=== PATIENT | female | born 1950 | race Caucasian/White ===

== ENCOUNTER → 2016-03-15 | Outpatient (CLI) | payer MEDICARE ==
[2016-03-15 12:41] LABS: ALT 46 U/L (9-52); AST 51 U/L (14-36); Alkaline Phosphatase 216 U/L (38-126); Anion Gap 11 mmol/L; Blood Urea Nitrogen 22 mg/dL (7-17); Calcium 10.6 mg/dL (8.4-10.2); Carbon Dioxide 30 mmol/L (22-30); Chloride 100 mmol/L (98-107); Glucose 89 mg/dL (74-99); Non-African American GFR(MDRD) >60 (>60 ml/min/1.73 sqM); Potassium 4.5 mmol/L (3.5-5.1); Sodium 141 mmol/L (137-145); Total Bilirubin 0.6 mg/dL (0.2-1.3); Total Protein 7.6 g/dL (6.3-8.2)
== END | disposition home or self-care (01) ==
LOC: LABWHC1 12:13
PROVIDERS: ATTEND Internal Medicine Gastroenterology
DX: K74.3 Primary biliary cirrhosis (principal)
CPT/HCPCS: 36415; 80053

== ENCOUNTER → 2016-03-27 | Outpatient (CLI) | payer MEDICARE ==
--- NOTE | 2016-03-27 11:48 | XR ---
EXAMINATION TYPE: XR shoulder complete RT DATE OF EXAM: 03/27/2016 11:29 AM CLINICAL HISTORY: pain TECHNIQUE: Three views of the right shoulder are obtained. COMPARISON: None FINDINGS: There is no acute fracture/dislocation evident. The acromioclavicular and glenohumeral adonis int spaces appear narrowed.. The visualized ribs are intact and unremarkable. IMPRESSION: 1. There is no acute fracture or dislocation. ICD 10 NO FRACTURE, INITIAL EVALUATION
== END | disposition home or self-care (01) ==
LOC: RADXRMAIN 11:07
PROVIDERS: ATTEND Family Medicine
DX: M25.511 Pain in right shoulder (principal)

== ENCOUNTER → 2016-03-30 | Outpatient (CLI) | payer MEDICARE ==
--- NOTE | 2016-03-31 13:01 | MM ---
Reason for exam: screening (asymptomatic). Last mammogram was performed 1 year and 4 months ago. History: Patient is postmenopausal. Family history of premenopausal breast cancer in sister at age 55. Took estrogen for 1 month beginning at age 52. Physical Findings: A clinical breast exam by your physician is recommended on an annual basis and results should be correlated with mammographic findings. MG 3D Screening Mammo W/Cad Bilateral CC and MLO view(s) were taken. Prior study comparison: November 17, 2014, bilateral MG screening mammo w CAD. September 28, 2011, bilateral digital screening mammo w/CAD. There are scattered fibroglandular densities. There is no discrete abnormality. ASSESSMENT: Negative, BI-RAD 1 RECOMMENDATION: Routine screening mammogram of both breasts in 1 year.
== END | disposition home or self-care (01) ==
LOC: RADMAMWWP 13:25
PROVIDERS: ATTEND Family Medicine
DX: Z12.31 Encounter for screening mammogram for malignant neoplasm of breast (principal)
CPT/HCPCS: 77063; G0202

== ENCOUNTER 2016-05-01 12:04 | Emergency (ER) | payer MEDICARE ==
[2016-05-01 12:14] VITALS: RESP 16; TEMP 98.7
[2016-05-01] MEDS ORDERED: IBUPROFEN 800 MG TAB PO STA (12:54)
--- NOTE | 2016-05-01 12:59 | ED ---
Lower Extremity Injury HPI - General Chief Complaint: Extremity Injury, Lower Stated Complaint: Fall /Knee injury Time Seen by Provider: 05/01/16 12:40 Source: patient, EMS, RN notes reviewed Mode of arrival: EMS Limitations: physical limitation - History of Present Illness Initial Comments: This is a 66-year-old female with a prior history of left femur fracture and tibia fracture is ago who states she was at home cleaning when she slipped or tripped and landed on her left knee complains of lateral left knee pain also a slight hip pain. He denies any head neck or back pain or other extremity injury. The pain which could ambulate. At rest she has minimal pain but she tries ambulate she has a lot of pain. She states she has no residual hardware that she is aware of in her bones. MD Complaint: knee injury - Related Data Home Medications Medication Instructions Recorded Confirmed Aspirin 81 mg PO DAILY 05/18/15 05/01/16 Estrogens, Conjugated Cream 1 applicate VAGINAL DAILY 05/18/15 05/01/16 [Premarin Cream] Glucosamine HCl/Chondr Alvarez A Na 1 tab PO BID 05/18/15 05/01/16 [Osteo Bi-Flex Caplet] Multivit-Min/FA/Lycopene/Lut 1 tab PO DAILY 05/18/15 05/01/16 [Centrum Silver Tablet] Ursodiol 600 mg PO BID 05/18/15 05/01/16 traMADol HCl [Ultram] 50 mg PO Q6H PRN 05/18/15 05/01/16 Losartan [Cozaar] 50 mg PO DAILY 05/01/16 05/01/16 Naproxen 500 mg PO Q12HR PRN 05/01/16 05/01/16 Venlafaxine HCl ER [Effexor Xr] 75 mg PO DAILY 05/01/16 05/01/16 Previous Rx's Medication Instructions Recorded Hydrocodone/Acetaminophen [Llewellyn 1 each PO Q6HR PRN #20 tab 05/01/16 5-325] Ibuprofen [Motrin] 800 mg PO Q6HR PRN #20 tab 05/01/16 Allergies Allergy/AdvReac Type Severity Reaction Status Date / Time Iodinated Contrast Media - Allergy Rash/Hives Verified 05/01/16 12:34 Oral and iodine Allergy Rash/Hives Verified 05/01/16 12:34 latex Allergy Rash/Hives Verified 05/01/16 12:34 Review of Systems ROS Statement: Those systems with pertinent positive or pertinent negative responses have been documented in the HPI. ROS Other: All systems not noted in ROS Statement are negative. Musculoskeletal: Reports: as per HPI Past Medical History Past Medical History: Hypertension, Osteoarthritis (OA) Additional Past Medical History / Comment(s): CIRHOSIS, Polio History of Any Multi-Drug Resistant Organisms: None Reported Past Surgical History: Orthopedic Surgery Additional Past Surgical History / Comment(s): KNEE, BRAIN SX FOR ANEURISM Past Psychological History: No Psychological Hx Reported Smoking Status: Never smoker Past Alcohol Use History: Rare Past Drug Use History: None Reported General Exam - General Exam Comments Initial Comments: This is a well-developed well-nourished awake alert oriented 3 female Limitations: physical limitation General appearance: alert, in no apparent distress Head exam: Present: atraumatic, normocephalic, normal inspection Eye exam: Present: normal appearance Neck exam: Present: normal inspection. Absent: tenderness, meningismus, lymphadenopathy Extremities exam: Present: tenderness, normal capillary refill, other (Some slight tenderness palpation of left hip with no deformity. There is some edema to the left knee with tenderness palpation over the anterior lateral knee is difficult to try to stress knee due to pain. No obvious deformity however there is a slight bruise noted just proximal to the left knee anteriorly. Distally is no tenderness over the mid to distal tib-fib ankle or foot. Rest extremities are unremarkable) Neurological exam: Present: alert, oriented X3, CN II-XII intact Psychiatric exam: Present: normal affect, normal mood Skin exam: Present: warm, dry, intact. Absent: rash Course Vital Signs 05/01/16 05/01/16 12:05 15:44 Temperature 98.7 F Pulse Rate 55 L 68 Respiratory 16 16 Rate Blood Pressure 172/71 189/77 O2 Sat by Pulse 99 98 Oximetry - Reevaluation(s) Reevaluation #1: 05/01/16 15:55 I did discuss the findings with the orthopedic surgeon service on-call a full femur x-ray has been requested I did discuss the initial findings with the patient and family members. Medical Decision Making - Medical Decision Making I did discuss findings with the patient and her . Patient will be placed in a knee immobilizer and discharged she does have crutches at home she is a follow-up with [facility] tomorrow. - Radiology Data Radiology results: report reviewed (I did review all the imaging and the reports. There is a distal femur fracture is noted pelvis fracture seen. I did also see the new femur x-ray which shows no new fractures.), image reviewed Disposition Clinical Impression: Closed left femoral fracture, Fall Disposition: HOME SELF-CARE Condition: Good Instructions: Knee Pain (ED), Knee Sprain (ED), Leg Fracture (ED) Additional Instructions: Left knee immobilizer, ice elevation and pain medication as needed crutches which you have at home follow-up with orthopedics tomorrow Prescriptions: Hydrocodone/Acetaminophen [Llewellyn 5-325] 1 each PO Q6HR PRN #20 tab PRN Reason: Pain Ibuprofen [Motrin] 800 mg PO Q6HR PRN #20 tab PRN Reason: Pain Referrals: Bryan Wood DO [Primary Care Provider] - 1-2 days Erick Daniel MD [STAFF PHYSICIAN] - 1-2 days
--- NOTE | 2016-05-01 13:25 | XR ---
EXAMINATION TYPE: XR knee complete LT DATE OF EXAM: 05/01/2016 1:18 PM CLINICAL HISTORY: Fall injury with pain. TECHNIQUE: Three views of the left knee are obtained. COMPARISON: Left knee x-ray June 09, 2009 FINDINGS: Osseous structures are demineralized which is noted lower radiographic sensitivity. There i s is partial visualization of healed fractures distal femoral diaphysis and proximal tibial diaphysis . There is new linear lucency consistent with acute nondisplaced comminuted fracture with cortical step -off involving the medial distal femoral meta-epiphysis with intra-articular extension. There is soft tissue density consistent with associated moderate to large suprapatellar joint effusion with fat/fl uid level identified. Mild diffuse subcutaneous edema is present. IMPRESSION: Seen best on the frontal view there is acute comminuted nondisplaced intra-articular frac ture of the medial aspect distal femoral meta-epiphysis with associated joint effusion. (Initial encounter close type post traumatic fracture)
--- NOTE | 2016-05-01 13:27 | XR ---
EXAMINATION TYPE: XR pelvis AP view DATE OF EXAM: 05/01/2016 1:18 PM CLINICAL HISTORY: Pain after fall injury today. TECHNIQUE: A single AP view of the pelvis is obtained. COMPARISON: None. FINDINGS: Osseous structures are somewhat demineralized which is noted to lower radiographic sensitiv ity. In addition exam is suboptimal as there is rotation identified. There is step-off suspicious for fracture involving the left superior pelvic ramus near pubic symphysis. No suspicious widening of pu bic symphysis is seen. Sacroiliac joints are maintained. The overlying soft tissue appears unremarkab le. IMPRESSION: Suboptimal study, acute fracture involving left superior pelvic ramus is suspected. Consi austyn CT correlation to assess for additional pelvic fractures. (Initial encounter closed type post traumatic fracture)
--- NOTE | 2016-05-01 14:23 | CT ---
EXAMINATION TYPE: CT pelvis wo con DATE OF EXAM: 05/01/2016 2:14 PM COMPARISON: Same day pelvic x-ray HISTORY: Fall with pelvic pain, abnormal x-ray. CT DLP: 296.1 mGycm Automated exposure control for dose reduction was used. FINDINGS: Osseous structures are demineralized. There is no acute fracture or dislocation in the pelvis with pa rticular attention to left superior pelvic ramus, area of concern on plain film is felt product of ro tation and demineralization. Sacroiliac joints are symmetric and maintained. There is no suspicious w idening of pubic symphysis. There is mild to moderate symmetric axial joint space loss in both hips. Bladder is slightly prominent extending into the upper pelvis. There is no suspicious bowel dilatatio n. There is some prominence of fecal material in the visualized colon. Uterus is surgically absent or markedly atrophic in appearance. There is facet arthropathy in the lower lumbar spine. There is trudy ed asymmetric atrophy of the anterior thigh muscles bilaterally. Fat replaced atrophy of paraspinal m uscles is also noted. IMPRESSION: NO ACUTE FRACTURE OR DISLOCATION IN THE PELVIS IS SEEN. MODERATE DIFFUSE COLONIC FECAL STASIS IS NOTE D. NO BOWEL OBSTRUCTION IS SEEN. MARKED FAT REPLACED ATROPHY OF PARASPINAL AND THIGH MUSCLES IS NOTED .
--- NOTE | 2016-05-01 14:27 | CT ---
EXAMINATION TYPE: CT knee LT wo con DATE OF EXAM: 05/01/2016 2:17 PM COMPARISON: Same day left knee x-ray. HISTORY: Fall with Left knee pain, abnormal x-ray. CT DLP: 457.2 mGycm Automated exposure control for dose reduction was used. FINDINGS: Osseous structures are demineralized. Linear lucency consistent with acute nondisplaced oblique fract ure through distal femur beginning at medial metaphysis extending to the epiphysis near condylar notc h is confirmed. There is moderate to large suprapatellar joint effusion with fat fluid level confirme d system with acute intra-articular fracture. There is fusion of the fibular head and posterior tibial meta-epiphysis. No acute fracture at this le cherise is clearly seen. Old fracture at this level is seen better on plain film. Patella is intact. Old healed fracture distal femoral diaphysis is redemonstrated. There is marked fat replaced atrophy of the entire muscles surrounding the visualized distal femur an d proximal tibia/fibula. IMPRESSION: ACUTE OBLIQUE NONDISPLACED INTRA-ARTICULAR FRACTURE OF DISTAL FEMORAL META-EPIPHYSIS IS CONFIRMED. NO TE IS MADE OF ADVANCED FAT REPLACED ATROPHY OF SURROUNDING MUSCLES LEFT KNEE LEVEL.
[2016-05-01] MEDS ORDERED: ACETAMINOPHEN TAB 500 MG TAB PO STA (15:43)
[2016-05-01 15:45] VITALS: BP 189/77; PULSE 68
--- NOTE | 2016-05-01 16:04 | XR ---
EXAMINATION TYPE: XR femur LT DATE OF EXAM: 05/01/2016 4:00 PM CLINICAL HISTORY: Distal left femur and knee pain since fall injury. TECHNIQUE: Two views of the left femur are obtained. COMPARISON: Same day left knee x-ray and pelvic x-ray/CT. FINDINGS: There is no additional acute fracture or dislocation seen in the proximal to mid left femu r. Old healed fracture distal diaphysis level is noted. Acute nondisplaced fracture distal tibial met a-epiphysis is redemonstrated. Osseous structures are demineralized. The left hip joint shows mild adonis int space loss. The overlying soft tissue appears unremarkable. IMPRESSION: There is no additional acute fracture or dislocation in the proximal to mid left femur.
== END 2016-05-01 16:55 | disposition home or self-care (01) ==
LOC: EC 12:04
DX: S83.92XA Sprain of unspecified site of left knee, initial encounter (principal); I10 Essential (primary) hypertension; M19.90 Unspecified osteoarthritis, unspecified site; Z79.82 Long term (current) use of aspirin; Z79.899 Other long term (current) drug therapy; Z91.041 Radiographic dye allergy status; Z91.040 Latex allergy status; Z87.81 Personal history of (healed) traumatic fracture; Z98.890 Other specified postprocedural states; W01.0XXA Fall on same level from slipping, tripping and stumbling without subsequent striking against object, initial encounter; Y93.89 Activity, other specified; Y92.009 Unspecified place in unspecified non-institutional (private) residence as the place of occurrence of the external cause
CPT/HCPCS: 72170; 73552; 73562; 72192; 73700; 99284; L1830 ×2

== ENCOUNTER → 2016-06-20 | Outpatient (CLI) | payer MEDICARE ==
[2016-06-20 14:42] LABS: Basophils # (A) 0.1 k/uL (0-0.2); Basophils % (A) 1 %; CH 31.6; CHCM 32.8; Eosinophils # (A) 0.2 k/uL (0-0.7); Eosinophils % (A) 3 %; HCT 37.9 % (34.0-46.0); HDW 2.14; HGB 12.2 gm/dL (11.4-16.0); Luc % (Auto) 2; Lymphocytes # (A) 1.5 k/uL (1.0-4.8); Lymphocytes % (A) 26 %; MCH 31.1 pg (25.0-35.0); MCHC 32.1 g/dL (31.0-37.0); MCV 96.9 fL (80.0-100.0); Monocytes # (A) 0.3 k/uL (0-1.0); Monocytes % (A) 5 %; Neutrophils # (A) 3.6 k/uL (1.3-7.7); Neutrophils % (A) 63 %; RBC 3.91 m/uL (3.80-5.40); RDW 13.2 % (11.5-15.5); WBC 5.7 k/uL (3.8-10.6); WBC (Perox) 5.86
[2016-06-20 14:52] LABS: ALT 37 U/L (9-52); AST 48 U/L (14-36); Alkaline Phosphatase 263 U/L (38-126); Anion Gap 8 mmol/L; Blood Urea Nitrogen 22 mg/dL (7-17); Calcium 10.3 mg/dL (8.4-10.2); Carbon Dioxide 32 mmol/L (22-30); Chloride 102 mmol/L (98-107); Glucose 96 mg/dL (74-99); Non-African American GFR(MDRD) >60 (>60 ml/min/1.73 sqM); Potassium 3.9 mmol/L (3.5-5.1); Sodium 142 mmol/L (137-145); Total Bilirubin 0.8 mg/dL (0.2-1.3); Total Protein 7.2 g/dL (6.3-8.2)
== END ==
LOC: LABWHC1 14:05
PROVIDERS: ATTEND Internal Medicine Gastroenterology
DX: K74.3 Primary biliary cirrhosis (principal)
CPT/HCPCS: 36415; 80053; 82105; 85025

== ENCOUNTER → 2017-01-02 | Outpatient (CLI) | payer MEDICARE ==
--- NOTE | 2017-01-03 07:08 | US ---
EXAMINATION TYPE: US carotid duplex BILAT DATE OF EXAM: 01/02/2017 COMPARISON: NONE CLINICAL HISTORY: R09.89 Other Specified Symptoms Signs Involving. EXAM MEASUREMENTS: RIGHT: Peak Systolic Velocity (PSV) cm/sec ----- Right CCA: 71.2 ----- Right ICA: 97.4 ----- Right ECA: 66.6 ICA/CCA ratio: 1.4 RIGHT: End Diastole cm/sec ----- Right CCA: 17.1 ----- Right ICA: 24.8 ----- Right ECA: 14.7 LEFT: Peak Systolic Velocity (PSV) cm/sec ----- Left CCA: 71.2 ----- Left ICA: 79.9 ----- Left ECA: 80.8 ICA/CCA ratio: 1.1 LEFT: End Diastole cm/sec ----- Left CCA: 20.6 ----- Left ICA: 34.5 ----- Left ECA: 13.6 VERTEBRALS (direction of flow): Right Vertebral: Antegrade Left Vertebral: Antegrade Rhythm: Normal No significant stenosis seen, no elevated velocities, bilateral plaque noted IMPRESSION: Mild tirado scale atheromatous plaquing of the carotid bulbs with no hemodynamically signi ficant stenosis within either carotid arterial system.
== END | disposition home or self-care (01) ==
LOC: RADUSWWP 17:00
PROVIDERS: ATTEND Family Medicine
DX: I65.23 Occlusion and stenosis of bilateral carotid arteries (principal)
CPT/HCPCS: 93880

== ENCOUNTER 2017-05-31 10:33 | Emergency (ER) | payer MEDICARE ==
[2017-05-31] MEDS ORDERED: DIPH,PERTUS(ACELL)TETVAC-LF 0.5 ML VIAL IM ONE (11:33)
[2017-05-31] MEDS ORDERED: SODIUM CHLORIDE 0.9% 500 ML IV STA (11:33)
[2017-05-31] MEDS ORDERED: RX INFO: IV CONTRAST WAS GIVEN 1 EACH MISC MISCELLANE PRN (11:34)
[2017-05-31] MEDS ORDERED: methylPREDNISolone SOD SUCCI 125 MG/2 ML VIAL IV STA (11:38)
[2017-05-31] MEDS ORDERED: diphenhydrAMINE 50 MG/ML 1 ML VIAL IVP STA (11:39)
[2017-05-31] MEDS ORDERED: FAMOTIDINE 20 MG/2 ML VIAL IV STA (11:39)
--- NOTE | 2017-05-31 11:41 | ED ---
Head Injury HPI - General Chief complaint: Head Injury Stated complaint: Fall-Head Injury Time Seen by Provider: 05/31/17 11:22 Source: patient Mode of arrival: ambulatory Limitations: no limitations - History of Present Illness Initial comments: 67 years O female had an accident at home today she fell backward she hit her head against a hard surface then it bled, no shortness of her tetanus status she has a history of stents in the aneurysms according to the patient and she had stents in the blood vessels the back of her neck also complaining about the neck pain, she had no direct neck impact. Denies any palpitation no chest pain no dizziness she just lost her balance and fell backward and review of system is unremarkable otherwise - Related Data Home Medications Medication Instructions Recorded Confirmed Aspirin 81 mg PO DAILY 05/18/15 05/31/17 Ursodiol 600 mg PO BID 05/18/15 05/31/17 Losartan [Cozaar] 50 mg PO HS 05/01/16 05/31/17 Venlafaxine HCl ER [Effexor Xr] 75 mg PO DAILY 05/01/16 05/31/17 Calcium Carbonate/Vitamin D3 1 tab PO DAILY 05/31/17 05/31/17 [Caltrate 600 Plus D3 Tablet] Hydrochlorothiazide [Hydrodiuril] 25 mg PO HS 05/31/17 05/31/17 Magnesium Citrate 125 mg PO HS 05/31/17 05/31/17 Mirabegron [Myrbetriq] 50 mg PO DAILY 05/31/17 05/31/17 Vision Formula 1 tab PO DAILY 05/31/17 05/31/17 Allergies/Adverse reactions: Allergies Allergy/AdvReac Type Severity Reaction Status Date / Time Iodinated Contrast- Oral and Allergy Rash/Hives Verified 05/31/17 11:18 IV Dye [Iodinated Contrast Media - Oral and] iodine Allergy Rash/Hives Verified 05/31/17 11:18 latex Allergy Rash/Hives Verified 05/31/17 11:18 Review of Systems ROS Statement: Those systems with pertinent positive or pertinent negative responses have been documented in the HPI. ROS Other: All systems not noted in ROS Statement are negative. Past Medical History Past Medical History: Hypertension, Osteoarthritis (OA) Additional Past Medical History / Comment(s): CIRHOSIS, Polio History of Any Multi-Drug Resistant Organisms: None Reported Past Surgical History: Orthopedic Surgery Additional Past Surgical History / Comment(s): KNEE, BRAIN SX FOR ANEURISM Past Psychological History: No Psychological Hx Reported Smoking Status: Never smoker Past Alcohol Use History: Rare Past Drug Use History: None Reported General Exam - General Exam Comments Initial Comments: General: The patient is awake and alert, in no distress, and does not appear acutely ill. Skin: Skin is warm and dry and no rashes or lesions are noted. Eye: Pupils are equal, round and reactive to light, extra-ocular movements are intact; there is normal conjunctiva bilaterally. Ears, nose, mouth and throat: There are moist mucous membranes and no oral lesions. Neck: The neck is supple, there is no tenderness or JVD. Cardiovascular: There is a regular rate and rhythm. No murmur, rub or gallop is appreciated. Respiratory: To auscultation bilateral, no wheezing no rhonchi no distress respiratory grimaldo noticed Gastrointestinal: Soft, non-distended, non-tender abdomen without masses or organomegaly noted. There is no rebound or guarding present. Bowel sounds are unremarkable. Back: There is no tenderness to palpation in the midline. There is no obvious deformity. Musculoskeletal: Normal ROM, no tenderness, There is no pedal edema. There is no calf tenderness or swelling. No cords were appreciated. Neurological: CN II-XII intact, Cranial nerves III through XII are intact. There are no obvious motor or sensory deficits. Coordination appears grossly intact. Speech is normal. Psychiatric: Cooperative, appropriate mood & affect, normal judgment. Limitations: no limitations Course Vital Signs 05/31/17 05/31/17 05/31/17 11:06 12:28 12:31 Temperature 98.4 F Pulse Rate 63 60 62 Respiratory 18 20 18 Rate Blood Pressure 136/63 O2 Sat by Pulse 92 L 100 97 Oximetry Patient is reassessed, CT edges and CT had without the contrast unremarkable cervical spine x-ray showed some degenerative changes but no acute fracture there, she has a laceration on the scalp, there was repaired with carl she would need to see her family doctor in about 7 days Procedures - Laceration Laceration #1 Consent Obtained: verbal consent Time Out Performed: Yes Indication: laceration Site: scalp Description: linear Depth: simple, single layer Anesthetic Used: lidocaine 1% Anesthesia Technique: local infiltration Type of Sutures: other (two carl were indicated) Medical Decision Making - Lab Data Result diagrams: 05/31/17 11:30 05/31/17 11:30 Lab Results 05/31/17 05/31/17 Range/Units 11:30 11:30 WBC 7.6 (3.8-10.6) k/uL RBC 4.37 (3.80-5.40) m/uL Hgb 13.3 (11.4-16.0) gm/dL Hct 39.8 (34.0-46.0) % MCV 91.2 (80.0-100.0) fL MCH 30.4 (25.0-35.0) pg MCHC 33.3 (31.0-37.0) g/dL RDW 12.8 (11.5-15.5) % Plt Count 204 (150-450) k/uL Neutrophils % 75 % Lymphocytes % 14 % Monocytes % 7 % Eosinophils % 2 % Basophils % 0 % Neutrophils # 5.7 (1.3-7.7) k/uL Lymphocytes # 1.1 (1.0-4.8) k/uL Monocytes # 0.5 (0-1.0) k/uL Eosinophils # 0.1 (0-0.7) k/uL Basophils # 0.0 (0-0.2) k/uL Sodium 140 (137-145) mmol/L Potassium 4.6 (3.5-5.1) mmol/L Chloride 101 (98-107) mmol/L Carbon Dioxide 29 (22-30) mmol/L Anion Gap 10 mmol/L BUN 27 H (7-17) mg/dL Creatinine 0.47 L (0.52-1.04) mg/dL Est GFR (CKD-EPI)AfAm >90 (>60 ml/min/1.73 sqM) Est GFR (CKD-EPI)NonAf >90 (>60 ml/min/1.73 sqM) Glucose 100 H (74-99) mg/dL Calcium 10.2 (8.4-10.2) mg/dL Total Bilirubin 0.6 (0.2-1.3) mg/dL AST 59 H (14-36) U/L ALT 47 (9-52) U/L Alkaline Phosphatase 312 H (38-126) U/L Total Protein 7.5 (6.3-8.2) g/dL Albumin 4.3 (3.5-5.0) g/dL Disposition Clinical Impression: Head injury, Laceration Disposition: HOME SELF-CARE Condition: Good Instructions: Concussion (ED), Laceration (ED) Additional Instructions: [place] out in 7 days to see the family doctor to get the carl out or return to the ER Referrals: Bryan Wood DO [Primary Care Provider] - 1-2 days
[2017-05-31 12:08] LABS: ALT 47 U/L (9-52); AST 59 U/L (14-36); Albumin 4.3 g/dL (3.5-5.0); Alkaline Phosphatase 312 U/L (38-126); Anion Gap 10 mmol/L; Blood Urea Nitrogen 27 mg/dL (7-17); Calcium 10.2 mg/dL (8.4-10.2); Carbon Dioxide 29 mmol/L (22-30); Chloride 101 mmol/L (98-107); Glucose 100 mg/dL (74-99); Potassium 4.6 mmol/L (3.5-5.1); Sodium 140 mmol/L (137-145); Total Bilirubin 0.6 mg/dL (0.2-1.3); Total Protein 7.5 g/dL (6.3-8.2)
[2017-05-31 12:13] LABS: Basophils % (A) 0 %; Eosinophils # (A) 0.1 k/uL (0-0.7); Eosinophils % (A) 2 %; HCT 39.8 % (34.0-46.0); HGB 13.3 gm/dL (11.4-16.0); Lymphocytes # (A) 1.1 k/uL (1.0-4.8); Lymphocytes % (A) 14 %; MCH 30.4 pg (25.0-35.0); MCHC 33.3 g/dL (31.0-37.0); MCV 91.2 fL (80.0-100.0); Mean Platelet Volume 7.5; Monocytes # (A) 0.5 k/uL (0-1.0); Monocytes % (A) 7 %; Neutrophils # (A) 5.7 k/uL (1.3-7.7); Neutrophils % (A) 75 %; Platelet Count 204 k/uL (150-450); RBC 4.37 m/uL (3.80-5.40); RDW 12.8 % (11.5-15.5); WBC 7.6 k/uL (3.8-10.6)
[2017-05-31 12:31] VITALS: RESP 18
--- NOTE | 2017-05-31 13:21 | CT ---
EXAMINATION TYPE: CT brain wo con, CT angio COW [facility] DATE OF EXAM: 05/31/2017 COMPARISON: NONE HISTORY: Fall, struck back of head, history of brain aneurysm CT DLP: 945.5 (accession [id number]), 824.8 (accession [id number]) mGycm Automated exposure control for dose reduction was used. TECHNIQUE: Standard unenhanced CT brain was performed prior to and after the administration of intrav enous contrast (100 mL of Isovue 370 was administered for the enhanced portion of examination). 3-D r eformats were obtained of the intracranial vasculature at a separate workstation. FINDINGS: There is a basilar artery to bilateral proximal posterior cerebral artery vascular stent. No evidence of intracranial hemorrhage is identified on the unenhanced images. 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 There is opacification of the vertebral arteri es, basilar artery, and posterior cerebral arteries without evidence of contrast extravasation. The i ntracranial portions of the internal carotid arteries are patent without focal aneurysm or dissection . The right A1 segment is noted to be diminutive in caliber as is the A2 segment. This could be conge nital or represent ostial stenosis from the branch point of the internal carotid artery. The middle c erebral arteries are symmetric without aneurysm or occlusion. In the arterial phase there is no abnor mal intracranial enhancement. Overall there is no evidence of acute intracranial hemorrhage, mass effect or midline shift. Orbits a re symmetric. No suspicious extra-axial fluid collection. Fontanez-white matter junction is preserved. Ca lvarium is intact and there is mild mucosal thickening within the ethmoid sinuses. The remaining para nasal sinuses and mastoid air cells are well aerated. IMPRESSION: 1. ENDOVASCULAR STENT FROM THE BASILAR ARTERY TO THE BILATERAL PROXIMAL POSTERIOR CEREBRAL ARTERIES W ITH NO EVIDENCE OF SUBARACHNOID HEMORRHAGE TO REPRESENT INTRACRANIAL ANEURYSM RUPTURE OR OCCLUSION OF THE ENDOVASCULAR STENT. 2. NO EVIDENCE OF INTRACRANIAL HEMORRHAGE OR MASS EFFECT. 3. DIMINUTIVE CALIBER OF THE A1 AND A2 SEGMENTS OF THE RIGHT ANTERIOR CEREBRAL ARTERY MAY BE CONGENIT AL IN NATURE OR RELATED TO OSTIAL STENOSIS.
--- NOTE | 2017-05-31 13:23 | XR ---
EXAMINATION TYPE: XR cervical spine comp DATE OF EXAM: 05/31/2017 TECHNIQUE: Frontal, lateral, oblique, swimmers, and open mouth view of the cervical spine are obtaine d. HISTORY: Neck pain COMPARISON: None FINDINGS: The cervical spine is visualized in its entirety from C1 thru the top of T1 level, it is s atisfactory in alignment without evidence of acute fracture or dislocation. Multilevel moderate degen erative changes of the cervical spine are seen as anterior osteophytes, intervertebral disc space taniya rowing, endplate sclerosis, uncovertebral hypertrophy, and facet arthropathy. This results in at leas t mild neural foraminal narrowing on the right at C2-C3 and C6-C7 as well as at least moderate neural foraminal narrowing on the left at C2-C3, C3-C4, C5-C6 and C6-C7 with mild neural foraminal narrowin g on the left at the remaining vertebral levels. Evaluation for spinal canal stenosis is limited on r adiograph. The pre-vertebral soft tissue appears within normal limits. The C1-C2 articulation is wit hin normal limits on the open mouth view. IMPRESSION: 1. No acute fracture or malalignment is seen in the cervical spine. 2. Moderate multilevel degenerative disc disease resulting in variable degrees of neural foraminal st enosis as described above.
[2017-05-31 14:05] VITALS: BP 158/72; PULSE 63; TEMP 97.5
== END 2017-05-31 14:03 | disposition home or self-care (01) ==
LOC: EC 10:33
DX: S01.01XA Laceration without foreign body of scalp, initial encounter (principal); M54.2 Cervicalgia; I10 Essential (primary) hypertension; Z79.82 Long term (current) use of aspirin; Z79.899 Other long term (current) drug therapy; Z91.041 Radiographic dye allergy status; Z91.048 Other nonmedicinal substance allergy status; Z91.040 Latex allergy status; Z23 Encounter for immunization; W19.XXXA Unspecified fall, initial encounter
CPT/HCPCS: 36415; 80053; 85025; 72050; 70496; 70450; 90715; 99284; 12001; 96374; 96375 ×2; 96361; 90471; J1200; J2930; Q9967

== ENCOUNTER → 2017-06-11 | Outpatient (CLI) | payer MEDICARE ==
[2017-06-11 10:35] LABS: Basophils % (A) 0 %; Eosinophils # (A) 0.1 k/uL (0-0.7); Eosinophils % (A) 2 %; HCT 40.5 % (34.0-46.0); HGB 13.4 gm/dL (11.4-16.0); Lymphocytes # (A) 1.4 k/uL (1.0-4.8); Lymphocytes % (A) 21 %; MCH 30.2 pg (25.0-35.0); MCHC 33.1 g/dL (31.0-37.0); MCV 91.2 fL (80.0-100.0); Mean Platelet Volume 7.3; Monocytes # (A) 0.4 k/uL (0-1.0); Monocytes % (A) 7 %; Neutrophils # (A) 4.5 k/uL (1.3-7.7); Neutrophils % (A) 68 %; Platelet Count 253 k/uL (150-450); RBC 4.44 m/uL (3.80-5.40); RDW 12.9 % (11.5-15.5); WBC 6.6 k/uL (3.8-10.6)
[2017-06-11 10:44] LABS: ALT 42 U/L (9-52); AST 48 U/L (14-36); Alkaline Phosphatase 259 U/L (38-126); Anion Gap 13 mmol/L; Blood Urea Nitrogen 28 mg/dL (7-17); Calcium 10.2 mg/dL (8.4-10.2); Carbon Dioxide 29 mmol/L (22-30); Chloride 102 mmol/L (98-107); Glucose 87 mg/dL (74-99); Sodium 144 mmol/L (137-145); Total Bilirubin 0.4 mg/dL (0.2-1.3); Total Protein 7.2 g/dL (6.3-8.2)
== END | disposition home or self-care (01) ==
LOC: LABWHC1 09:58
PROVIDERS: ATTEND Internal Medicine Gastroenterology
DX: K74.3 Primary biliary cirrhosis (principal)
CPT/HCPCS: 36415; 80053; 82105; 85025